=== PATIENT | female | born 1975 | race Caucasian/White ===

== ENCOUNTER 2016-07-24 22:18 | Emergency (ER) | payer MEDICARE, MEDICAID ==
[~2016-07-24] VITALS: Ht 154.9 cm; Wt 65.9 kg
[~2016-07-24 22:18] MED LIST: OMEP20TA86 PO
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
[2016-07-24 23:04] VITALS: BP 117/65; PULSE 92; RESP 14; O2SAT 96
[2016-07-24] MEDS ORDERED: 0.9% Sodium Chloride 1,000 ML IV ONE (23:10)
[2016-07-25 00:35] LABS: Mean Corpuscular Hemoglobin 25.6 pg (27.0-35.0); Mean Corpuscular Volume 77.9 fL (81-100)
[2016-07-25 01:11] VITALS: BP 113/72; PULSE 72; RESP 14; O2SAT 98
[2016-07-25] MEDS ORDERED: _Albuterol-HFA 60 Puff Inhaler INHALATION PRN (02:55)
[2016-07-25] MEDS: CEFTRIAXONE IV ONE ×2 (02:58→03:09)
[2016-07-25] MEDS ORDERED: cefTRIAXone Inj 250 MG, Lidocaine PF 1% Inj 0.9 ML in Syringe 1 EACH IM ONE (03:15)
[2016-07-25 03:51] VITALS: BP 128/64; PULSE 64; RESP 14; O2SAT 96
== END 2016-07-25 03:30 | disposition home or self-care (01) ==
LOC: EDBD 22:18 → SED 22:18
DX: T42.74XA Poisoning by unspecified antiepileptic and sedative-hypnotic drugs, undetermined, initial encounter (principal); Y93.89 Activity, other specified; Y92.89 Other specified places as the place of occurrence of the external cause; Y99.8 Other external cause status; F15.10 Other stimulant abuse, uncomplicated; F31.9 Bipolar disorder, unspecified; I50.9 Heart failure, unspecified; J44.9 Chronic obstructive pulmonary disease, unspecified; F17.200 Nicotine dependence, unspecified, uncomplicated; Z20.2 Contact with and (suspected) exposure to infections with a predominantly sexual mode of transmission
CPT/HCPCS: 80053; 81002; 81025; 82075; 85027; 87491; 87591; 93005; 96360; 99284; G0480; J0696; J7030